=== PATIENT | female | born 1945 | race Caucasian/White ===

== ENCOUNTER 2021-12-05 11:11 | Outpatient (CLI) | payer BC | END 2021-12-05 11:12 | disposition home or self-care (01) | LOC: TBSIIMAG 11:11 | PROVIDERS: ATTEND Neurological Surgery | DX: M48.062 Spinal stenosis, lumbar region with neurogenic claudication (principal) | CPT/HCPCS: 72100 ==

== ENCOUNTER 2021-12-24 14:24 | Outpatient (CLI) | payer BC ==
[2021-12-24 15:45] LABS: Hemoglobin 13.3 g/dL (12.0-15.5); Mean Corpuscular HGB CONC 35.2 g/dL (32.0-36.0); Mean Corpuscular Hemoglobin 33.3 pg (27.0-33.0); Mean Corpuscular Volume 94.7 fl (81.6-98.3); Mean Platelet Volume 9.4 fl (7.4-10.4); Platelet Count 262 10x3/uL (150-450); RBC Distribution Width 13.5 % (11.5-14.5); Red Blood Cell (RBC) Count 3.99 10x6/uL (3.90-5.03)
[2021-12-24 15:51] LABS: PTT 23.3 sec (22.0-33.0); Prothrombin Time 10.5 sec (9.5-12.1)
[2021-12-24 15:53] LABS: Anion Gap 17 mmol/L (10-20); BUN (Urea Nitrogen) 11 mg/dL (9.8-20.1); Calc. Creatinine Clearance 0 mL/min (70-130); Calcium 9.8 mg/dL (7.8-10.44); Carbon Dioxide 26 mmol/L (23-31); Chloride 98 mmol/L (98-107); Glucose 103 mg/dL (83-110); Potassium 4.2 mmol/L (3.5-5.1); Sodium 137 mmol/L (136-145)
== END 2021-12-24 14:25 | disposition home or self-care (01) ==
LOC: LABBT 14:24
PROVIDERS: ATTEND Neurological Surgery
DX: Z01.812 Encounter for preprocedural laboratory examination (principal); M48.061 Spinal stenosis, lumbar region without neurogenic claudication; Z20.822 Contact with and (suspected) exposure to COVID-19
CPT/HCPCS: 80048; 85027; 85610; 85730; U0003; U0005

== ENCOUNTER 2021-12-27 05:49 | Observation (INO) | payer BC ==
[2021-12-25 14:28] VITALS: BMI 23.8
[2021-12-27] MEDS ORDERED: EPINEPHrine 1 MG/ML AMP ONE (06:19)
[2021-12-27] MEDS ORDERED: Thrombin 5000 UNITS/5 ML VIAL ONE (06:19)
[2021-12-27] MEDS ORDERED: Bupivacaine PF 0.5% 30 ML VIAL ONE (06:19)
[2021-12-27] MEDS ORDERED: Neomycin-Polymyxin 1 ML AMP ONE (06:19)
[2021-12-27] MEDS ORDERED: fentaNYL Citrate/PF 100 MCG/2 ML SYRINGE ONE (06:20)
[2021-12-27] MEDS ORDERED: Sodium Chloride 0.9% 100 ML ONE (06:49)
[2021-12-27] MEDS ORDERED: CEFAZOLIN 2 GM VIAL ONE (06:49)
[2021-12-27] MEDS ORDERED: Ondansetron PF 4 MG/2 ML Vial ONE (07:01)
[2021-12-27] MEDS ORDERED: Dexamethasone 20 MG/5 ML VIAL ONE (07:01)
[2021-12-27] MEDS ORDERED: Rocuronium Bromide 10 MG/ML (10ML VIAL) ONE (07:01)
[2021-12-27] MEDS ORDERED: Lidocaine 1% PF 5 ML VIAL ONE (07:01)
[2021-12-27] MEDS ORDERED: PROPOFOL 200 MG/20 ML VIAL ONE (07:01)
[2021-12-27] MEDS ORDERED: Glycopyrrolate 0.2 MG/ML 5 ML SYRINGE ONE (07:01)
[2021-12-27] MEDS ORDERED: Fentanyl 100 MCG/2 ML VIAL ONE (10:14)
[2021-12-27] MEDS ORDERED: HYDROmorphone 2 MG/ML VIAL ONE (10:20)
[2021-12-27] MEDS ORDERED: Morphine 2 MG/ML VIAL SLOW IVP PRN (12:38)
[2021-12-27] MEDS ORDERED: Milk Of Magnesia 30 ML UDCUP PO PRN (12:38)
[2021-12-27] MEDS ORDERED: Cyclobenzaprine 10 MG TAB PO PRN (12:38)
[2021-12-27] MEDS ORDERED: diphenhydrAMINE 50 MG/ML VIAL IVP PRN (12:38)
[2021-12-27] MEDS ORDERED: Ondansetron PF 4 MG/2 ML Vial IVP PRN (12:38)
[2021-12-27] MEDS ORDERED: Bisacodyl 10 MG SUPP PR PRN (12:38)
[2021-12-27] MEDS ORDERED: Promethazine HCl 12.5 MG SUPP PR PRN (12:38)
[2021-12-27] MEDS ORDERED: Acetaminophen/Codeine 30-300mg Tablet PO PRN (12:38)
[2021-12-27] MEDS ORDERED: Mag-Al 1200 mg/1200 mg/30 ML UDCUP PO PRN (12:38)
[2021-12-27] MEDS ORDERED: HYDROcodone/Acetaminophen 10/325 mg Tablet PO PRN (12:38)
[2021-12-27] MEDS: CEFAZOLIN 2 GM in Sodium Chloride 0.9% 100 ML IVPB SCH ×2 (14:59→23:41)
[2021-12-27] MEDS: Sodium Chloride 0.9% 1,000 ML IV SCH (14:59)
[2021-12-27] MEDS: HYDROcodone/Acetaminophen 7.5/325 mg Tablet PO PRN ×2 (18:11→23:41)
[2021-12-27] MEDS ORDERED: Chloraseptic Spray 180 ml Bottle PO PRN (18:37)
[2021-12-28] MEDS: Sodium Chloride 0.9% 1,000 ML IV SCH (00:55)
[2021-12-28] MEDS: HYDROcodone/Acetaminophen 7.5/325 mg Tablet PO PRN ×2 (08:38→13:07)
[2021-12-28 12:47] VITALS: BP 119/66; TEMP 97.4
== END 2021-12-28 16:38 | disposition home or self-care (01) ==
LOC: SDC 05:49 → MSONC 14:17
PROVIDERS: ADMIT Neurological Surgery; ATTEND Neurological Surgery
PROC: 01NB0ZZ Release Lumbar Nerve, Open Approach (ICD-10-PCS; principal; 2021-12-27)
DX: M48.062 Spinal stenosis, lumbar region with neurogenic claudication (principal); I10 Essential (primary) hypertension; E78.5 Hyperlipidemia, unspecified; I48.91 Unspecified atrial fibrillation; J45.909 Unspecified asthma, uncomplicated; R32 Unspecified urinary incontinence; Z79.01 Long term (current) use of anticoagulants; Z79.899 Other long term (current) drug therapy; Z88.2 Allergy status to sulfonamides
CPT/HCPCS: 76000; 96365; 96375; 96376; G0378; J0171; J0690; J1100; J1170; J2270; J2405; J2704; J3010; J3370; J3490; J7050; S0020